=== PATIENT | female | born 1955 | race Caucasian/White ===

== ENCOUNTER 2017-02-08 06:35 | Day surgery (SDC) | payer OTHER ==
[2017-02-08 07:02] VITALS: BMI 24.7
[2017-02-08] MEDS ORDERED: Propofol 10 mg/ml Inj (20 ML) ONE (08:20)
[2017-02-08] MEDS ORDERED: Lidocaine Hydrochloride 5 ML INJ ONE (08:20)
[2017-02-08] MEDS ORDERED: Atropine 0.4 mg/ml Inj (1 mL) ONE (08:37)
[2017-02-08 12:25] VITALS: TEMP 97.9
[2017-02-08 12:37] VITALS: RESP 18
[2017-02-08 12:46] VITALS: BP 105/60; PULSE 68; O2SAT 99
== END 2017-02-08 10:15 | disposition home or self-care (01) ==
LOC: C.ENDO 06:35
PROVIDERS: ATTEND Internal Medicine
DX: K21.9 Gastro-esophageal reflux disease without esophagitis (principal); K64.8 Other hemorrhoids; K57.90 Diverticulosis of intestine, part unspecified, without perforation or abscess without bleeding; K29.70 Gastritis, unspecified, without bleeding; D12.2 Benign neoplasm of ascending colon
CPT/HCPCS: 43239; 45388; 88305; J0461; J2001; J2704

== ENCOUNTER 2018-03-12 11:42 | Emergency (ER) | payer OTHER ==
[2018-03-12 11:43] VITALS: BMI 24.7
[2018-03-12] MEDS ORDERED: Lactated Ringer's 1,000 ML IV STA (13:32)
[2018-03-12] MEDS ORDERED: Lactated Ringer's 1,000 ML ONE (13:50)
[2018-03-12 13:52] LABS: BASO % 0.7 % (0.0-2.0); EOS # 0.3 K/uL (0.0-0.7); EOS % 4.4 % (0.0-4.0); HEMOGLOBIN 13.7 g/dL (11.0-16.0); LYMPH # 2.3 K/uL (1.0-4.3); LYMPH % 38.5 % (20.0-40.0); MEAN CELL VOLUME 87.4 fL (81.0-99.0); MEAN CORPUSCULAR HEMOGLOBIN 29.4 pg (27.0-31.0); MEAN CORPUSCULAR HGB CONC 33.6 g/dL (33.0-37.0); MEAN PLATELET VOLUME 8.1 fL (7.2-11.7); MONO # 0.5 K/uL (0.0-0.8); NEUT # 2.9 K/uL (1.8-7.0); NEUT % 48.4 % (50.0-75.0); RBC 4.65 Mil/uL (3.80-5.20); RED CELL DISTRIBUTION WIDTH 13.3 % (11.5-14.5)
[2018-03-12 14:19] LABS: ALB/GLOB RATIO 1.4 (1.0-2.1); ALBUMIN 4.5 g/dL (3.5-5.0); ALT/SGPT 49 U/L (9-52); AST/SGOT 33 U/L (14-36); BLOOD UREA NITROGEN 15 mg/dL (7-17); CALCIUM 9.7 mg/dl (8.6-10.4); GFR NON-AFRICAN AMERICAN > 60
--- NOTE | 2018-03-12 14:55 | C.PDOC ---
History Of Present Illness 62 y/o female presents to the ER complaining of gradual onset of headache over the past 2 weeks. Patient states that pain is localized to the left confucianism and behind left eye. Patient reports that he took Excedrin for the pain. She is also complaining of eye irritation which has been present for the past 1 week. 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 However, the eye irritation continued last night. She feels mildly nauseous and has mild sinus congestion. Otherwise, patient denies having eye discharge, fever , chills, and vomiting. Time Seen by Provider: 03/12/18 13:25 Chief Complaint (Nursing): Dizziness/Lightheaded History Per: Patient History/Exam Limitations: no limitations Onset/Duration Of Symptoms: Days Current Symptoms Are (Timing): Still Present Severity: Moderate Past Medical History Reviewed: Historical Data, Nursing Documentation, Vital Signs Vital Signs: Last Vital Signs Temp 98.3 F 03/12/18 12:29 Pulse 74 03/12/18 12:29 Resp 18 03/12/18 12:29 BP 115/78 03/12/18 12:29 Pulse Ox 99 03/12/18 14:59 - Medical History PMH: Arthritis, Hypothyroidism Denies: Colonic Polyps, Fractures, Chronic Kidney Disease, Sleep Apnea, TIA Surgical History: Denies: Endoscopy Other Surgeries: Hx of surgeries - [facility] Procedures LAPAROSCOP REMOVE OVARIES/TUBES (05/20/14) LAPAROSCOPIC ROBOTIC ASSISTED PROCEDURE (05/20/14) LAPAROSCOPIC TOTAL ABDOMINAL HYSTERECTOMY (05/20/14) Family History: States: No Known Family Hx - Social History Hx Alcohol Use: No Hx Substance Use: No Review Of Systems Constitutional: Negative for: Fever, Chills Eyes: Positive for: Redness (left eye), Other (eye irritation). Negative for: Vision Change Cardiovascular: Negative for: Chest Pain, Palpitations Gastrointestinal: Positive for: Nausea. Negative for: Vomiting Neurological: Positive for: Headache. Negative for: Weakness, Change in Speech , Confusion, Dizziness Physical Exam - Physical Exam Appears: Non-toxic Skin: Normal Color, Warm, Dry Head: Atraumatic, Normacephalic Eye(s): bilateral: PERRL, EOMI, right: Normal Inspection, left: Other ( injection in eye) Nose: Normal Oral Mucosa: Moist Neck: Supple Chest: Symmetrical Cardiovascular: Rhythm Regular Respiratory: Normal Breath Sounds, No Rales, No Rhonchi, No Wheezing Neurological/Psych: Oriented x3, Normal Speech ED Course And Treatment - Laboratory Results Result Diagrams: 03/12/18 13:47 03/12/18 13:47 Lab Interpretation: Normal O2 Sat by Pulse Oximetry: 99 (RA) Pulse Ox Interpretation: Normal - CT Scan/US Head Other Rad Studies (CT/US): Read By Radiologist, Radiology Report Reviewed CT/US Interpretation: Accession No. : [id number]. Patient Name / ID : JAN MORELAND / [id number]. Exam Date : 03/12/2018 14:22:55 ( Approved ). Study Comment : Sex / Age : F / 62Y. Creator : Kellen Ho. Dictator : Bonnie Ryan MD. Sdet : Varnish Remover : Bonnie Ryan MD. Approver2 : Report Date : 03/12/2018 14:46:22. My Comment : . Date of service: 03/12/2018. PROCEDURE: CT HEAD WITHOUT CONTRAST. HISTORY: Headache. COMPARISON: None available. TECHNIQUE: Axial computed tomography images were obtained through the head/brain without intravenous contrast. Radiation dose: Total exam DLP = 1148.39 mGy-cm. This CT exam was performed using one or more of the following dose reduction techniques: Automated exposure control, adjustment of the mA and/or kV according to patient size, and/ or use of iterative reconstruction technique. FINDINGS: Streak artifact obscures evaluation of the skullbase. HEMORRHAGE: No intracranial hemorrhage. BRAIN: No mass effect or edema. The sanders-white matter differentiation appears intact.Please note that MRI with diffusion imaging is more sensitive in the detection of acute ischemic event. VENTRICLES: No hydrocephalus. CALVARIUM: Unremarkable. PARANASAL SINUSES: Unremarkable as visualized. No significant inflammatory changes. MASTOID AIR CELLS: Unremarkable as visualized. No inflammatory changes. OTHER FINDINGS: None. IMPRESSION: No acute intracranial pathology identified. Findings as above. Progress Note: Patient treated with IV Toradol Reevaluation Time: 15:11 Reassessment Condition: Improved Medical Decision Making Medical Decision Making: Plan: --Labs --CT- Head --Toradol IV --Zofran IV Disposition Counseled Patient/Family Regarding: Studies Performed, Diagnosis, Need For Followup - Disposition Referrals: [facility] [Outside] Disposition: HOME/ ROUTINE Disposition Time: 15:13 Condition: IMPROVED Instructions: Headache, Adult Forms: [employer] (Iraqi) - Clinical Impression Clinical Impression: Headache - Scribe Statement The provider has reviewed the documentation as recorded by the Sendyibe Bethel Alfred Provider Attestation: All medical record entries made by the Sendyibe were at my direction and personally dictated by me. I have reviewed the chart and agree that the record accurately reflects my personal performance of the history, physical exam, medical decision making, and the department course for this patient. I have also personally directed, reviewed, and agree with the discharge instructions and disposition.
[2018-03-12 15:38] VITALS: BP 96/66; PULSE 70; RESP 16; TEMP 97.5; O2SAT 100
== END 2018-03-12 15:38 | disposition home or self-care (01) ==
LOC: C.ER 11:42
DX: R51 Headache (principal)
CPT/HCPCS: 70450; 80053; 85025; 96361; 96374; 96375; 99285; J1885; J2405; J7120

== ENCOUNTER 2018-10-03 14:23 | Emergency (ER) | payer OTHER ==
[2018-10-03 14:24] VITALS: BMI 24.7
[2018-10-03 14:42] VITALS: BP 139/86; PULSE 72; RESP 17; TEMP 97.6; O2SAT 100
[2018-10-03] MEDS ORDERED: Amoxicillin-Clav 875-125 mg Tab PO STA (15:38)
--- NOTE | 2018-10-03 15:42 | C.PDOC ---
History Of Present Illness 62 y/o female pt presents to the ER c/o cough for x6 months. Associated sx includes left ear pain, tearing in the eyes and nasal congestion for x3 days. Pt reports she went to see PMD for cough and was given claritin but doesn't note much improvement. Pt is unsure if she has seasonal allergies. Pt denies fever, chills, nausea, vomiting and SOB. Chief Complaint (Nursing): ENT Problem History Per: Patient History/Exam Limitations: no limitations Onset/Duration Of Symptoms: Days (x6 months for cough) Current Symptoms Are (Timing): Still Present Past Medical History Reviewed: Historical Data, Nursing Documentation, Vital Signs Vital Signs: Last Vital Signs Temp 97.6 F 10/03/18 14:40 Pulse 72 10/03/18 14:40 Resp 17 10/03/18 14:40 BP 139/86 10/03/18 14:40 Pulse Ox 100 10/03/18 14:40 - Medical History PMH: Arthritis, Hypothyroidism - [facility] Procedures LAPAROSCOP REMOVE OVARIES/TUBES (05/20/14) LAPAROSCOPIC ROBOTIC ASSISTED PROCEDURE (05/20/14) LAPAROSCOPIC TOTAL ABDOMINAL HYSTERECTOMY (05/20/14) Family History: States: No Known Family Hx - Social History Hx Alcohol Use: No Hx Substance Use: No - Immunization History Hx Tetanus Toxoid Vaccination: No Hx Influenza Vaccination: No Hx Pneumococcal Vaccination: No Review Of Systems Constitutional: Positive for: Other (cold and congestion ). Negative for: Fever, Chills Eyes: Positive for: Other (tearing ) ENT: Positive for: Ear Pain (left ) Cardiovascular: Negative for: Chest Pain Respiratory: Positive for: Cough (wet). Negative for: Shortness of Breath Gastrointestinal: Negative for: Nausea, Vomiting Musculoskeletal: Negative for: Neck Pain Skin: Negative for: Rash Neurological: Negative for: Headache, Dizziness Physical Exam - Physical Exam Appears: Well, Non-toxic, No Acute Distress Skin: Warm, Dry, No Rash Head: Atraumatic, Normacephalic Eye(s): bilateral: Normal Inspection, PERRL Ear(s): Left: TM Erythema, Other (buldging), Right: Normal Nose: No Discharge, Other (turbinate hypertrophy) Oral Mucosa: Moist Tongue: Normal Appearing Throat: Normal, No Erythema, No Exudate Neck: Normal ROM, Supple Chest: Symmetrical Cardiovascular: Rhythm Regular Respiratory: Normal Breath Sounds, No Accessory Muscle Use, No Wheezing Gastrointestinal/Abdominal: Soft, No Tenderness Neurological/Psych: Oriented x3, Normal Speech, Normal Motor, Normal Sensation ED Course And Treatment O2 Sat by Pulse Oximetry: 100 (RA) Pulse Ox Interpretation: Normal - Other Rad chest X-Ray: Viewed By Me, Read By Radiologist Interpretation: Accession No. : [id number]. Patient Name / ID : JAN Ramirez / [id number]. Exam Date : 10/03/2018 15:40:06 ( Approved ). Study Comment : Sex / Age : F / 62Y. Creator : Gloria Pineda MD. Dictator : Gloria Pineda MD. Hopper Filler : Medical Affairs Director : Gloria Pineda MD. Approver2 : Report Date : 10/03/2018 15:53:36. My Comment : . Date of service: 10/03/2018. HISTORY: Cough. COMPARISON: No prior. TECHNIQUE: Chest PA and lateral. FINDINGS: LINES AND TUBES: None. LUNG AND PLEURA: The lungs are well inflated and clear. No pleural effusion or pneumothorax. HEART AND MEDIASTINUM: The heart is not enlarged. No aortic atherosclerotic calcifications present. The hilar and mediastinal contours are within normal limits. SKELETAL STRUCTURES: The bony structures are within normal limits for the patient's age. VISUALIZED UPPER ABDOMEN: Normal. OTHER FINDINGS: None. IMPRESSION: No active pulmonary disease. Medical Decision Making Medical Decision Making: DX: Otitis media and Upper respiratory infections Plans: -- CXR -no active pulmonary disease -- amoxicillin and Tessalon Perles given now and to continue upon discharge Recommended rest and hydration Follow up with PMD in 1-2 days Patient verbalizes understanding and is in agreement with plan. Patient is stable for discharge. Disposition Counseled Patient/Family Regarding: Studies Performed, Diagnosis, Need For Followup, Rx Given - Disposition Referrals: Alexandra Salguero [Staff Provider] - Disposition: HOME/ ROUTINE Disposition Time: 16:17 Condition: STABLE Additional Instructions: Please review handout on Otitis media and Upper respiratory infections Take meds as instructed Rest and hydration Follow up with PMD in 1-2 days Return to the ED if symptoms worsen Prescriptions: Amoxicillin/Clavulanate [Augmentin 875 MG-125 MG] 1 tab PO BID #19 tab Benzonatate [Tessalon Perles] 100 mg PO TID #30 sgl Instructions: Ear Infections (Otitis Media) (DC), Upper Respiratory Infection (ED) Forms: [employer] (Welsh) - Clinical Impression Clinical Impression: Otitis media, right, Cough - PA / BRAND ADVISOR / Resident Statement MD/ has reviewed & agrees with the documentation as recorded. - Scribe Statement The provider has reviewed the documentation as recorded by the Yuri Kulkarni Do All medical record entries made by the Scribe were at my direction and personally dictated by me. I have reviewed the chart and agree that the record accurately reflects my personal performance of the history, physical exam, medical decision making, and the department course for this patient. I have also personally directed, reviewed, and agree with the discharge instructions and disposition.
--- NOTE | 2018-10-03 15:51 | C.PDOC ---
Chief Complaint (Nursing): ENT Problem Past Medical History Vital Signs: Last Vital Signs Temp 97.6 F 10/03/18 14:40 Pulse 72 10/03/18 14:40 Resp 17 10/03/18 14:40 BP 139/86 10/03/18 14:40 Pulse Ox 100 10/03/18 14:40 - Medical History PMH: Arthritis, Hypothyroidism Denies: Colonic Polyps, Fractures, Chronic Kidney Disease, Sleep Apnea, TIA Surgical History: Denies: Endoscopy - [facility] Procedures LAPAROSCOP REMOVE OVARIES/TUBES (05/20/14) LAPAROSCOPIC ROBOTIC ASSISTED PROCEDURE (05/20/14) LAPAROSCOPIC TOTAL ABDOMINAL HYSTERECTOMY (05/20/14) - Social History Hx Alcohol Use: No Hx Substance Use: No - Immunization History Hx Tetanus Toxoid Vaccination: No Hx Influenza Vaccination: No Hx Pneumococcal Vaccination: No ED Course And Treatment O2 Sat by Pulse Oximetry: 100 Disposition Counseled Patient/Family Regarding: Studies Performed, Diagnosis, Need For Followup, Rx Given - Disposition Referrals: Alexandra Salguero [Staff Provider] - Disposition: HOME/ ROUTINE Disposition Time: 16:02 Condition: STABLE Additional Instructions: Please review handout on Otitis media and Upper respiratory infections Take meds as instructed Rest and hydration Follow up with PMD in 1-2 days Return to the ED if symptoms worsen Prescriptions: Amoxicillin/Clavulanate [Augmentin 875 MG-125 MG] 1 tab PO BID #19 tab Benzonatate [Tessalon Perles] 100 mg PO TID #30 sgl Instructions: Ear Infections (Otitis Media) (DC), Upper Respiratory Infection (ED) Forms: [employer] (Slovak) - Clinical Impression Clinical Impression: Otitis media, right, Cough
[2018-10-03] MEDS ORDERED: Amoxicillin-Clav 875-125 mg Tab PO ONE (15:55)
--- NOTE | 2018-10-03 15:57 | RAD ---
Date of service: 10/03/2018 HISTORY: Cough COMPARISON: No prior. TECHNIQUE: Chest PA and lateral FINDINGS: LINES AND TUBES: None. LUNG AND PLEURA: The lungs are well inflated and clear. No pleural effusion or pneumothorax. HEART AND MEDIASTINUM: The heart is not enlarged. No aortic atherosclerotic calcifications present. The hilar and mediastinal contours are within normal limits. SKELETAL STRUCTURES: The bony structures are within normal limits for the patient's age. VISUALIZED UPPER ABDOMEN: Normal. OTHER FINDINGS: None. IMPRESSION: No active pulmonary disease.
== END 2018-10-03 16:17 | disposition home or self-care (01) ==
LOC: C.ER 14:23
DX: H66.91 Otitis media, unspecified, right ear (principal); R05 Cough

== ENCOUNTER 2018-10-07 17:06 | Emergency (ER) | payer OTHER ==
[2018-10-07 17:07] VITALS: BMI 24.7
[2018-10-07] MEDS ORDERED: Sodium Chloride 0.9% 1,000 ML IV ONE (20:00)
[2018-10-07] MEDS ORDERED: Alum-Mag Hydrox-Simethicone Susp (30 mL) PO ONE (20:00)
[2018-10-07] MEDS ORDERED: Sodium Chloride 0.9% 1,000 ML ONE (20:28)
[2018-10-07] MEDS ORDERED: Alum-Mag Hydrox-Simethicone Susp (30 mL) ONE (20:28)
--- NOTE | 2018-10-07 20:48 | C.PDOC ---
History Of Present Illness 62 year old female presents to the ED c/o epigastric abdominal pain and burning sensation in her chest radiating up to her throat since yesterday. Patient reports symptoms started after taking Augmentin that she is taking for an ear and throat infection. Patient also reports feeling stomach bloating and some nausea. Patient denies fever, chills, CP, SOB, palpitations, vomit, diarrhea, rash, weakness, numbness. Time Seen by Provider: 10/07/18 19:44 Chief Complaint (Nursing): Abdominal Pain History Per: Patient History/Exam Limitations: no limitations Onset/Duration Of Symptoms: Days (1) Current Symptoms Are (Timing): Still Present Location Of Pain/Discomfort: Epigastric Quality Of Discomfort: Burning Associated Symptoms: Nausea. denies: Vomiting, Diarrhea, Constipation, Urinary Symptoms Exacerbating Factors: Other Recent travel outside of the [place]: No Additional History Per: Patient Abnormal Vaginal Bleeding: No Past Medical History Reviewed: Historical Data, Nursing Documentation, Vital Signs Vital Signs: Last Vital Signs Temp 97.6 F 10/07/18 20:42 Pulse 86 10/07/18 20:42 Resp 18 10/07/18 20:42 BP 119/79 10/07/18 20:42 Pulse Ox 98 10/07/18 20:42 - Medical History PMH: Arthritis, Hypothyroidism Denies: Colonic Polyps, Fractures, Chronic Kidney Disease, Sleep Apnea, TIA Surgical History: No Surg Hx - [facility] Procedures LAPAROSCOP REMOVE OVARIES/TUBES (05/20/14) LAPAROSCOPIC ROBOTIC ASSISTED PROCEDURE (05/20/14) LAPAROSCOPIC TOTAL ABDOMINAL HYSTERECTOMY (05/20/14) Family History: States: Unknown Family Hx - Social History Hx Alcohol Use: No Hx Substance Use: No - Immunization History Hx Tetanus Toxoid Vaccination: No Hx Influenza Vaccination: No Hx Pneumococcal Vaccination: No Review Of Systems Constitutional: Negative for: Fever, Chills Cardiovascular: Negative for: Chest Pain, Palpitations Respiratory: Negative for: Shortness of Breath Gastrointestinal: Positive for: Nausea, Abdominal Pain. Negative for: Vomiting, Diarrhea Skin: Negative for: Rash Neurological: Negative for: Weakness, Numbness, Headache, Dizziness Physical Exam - Physical Exam Appears: Non-toxic, No Acute Distress Skin: Normal Color, Warm, Dry Head: Atraumatic, Normacephalic Eye(s): bilateral: Normal Inspection Oral Mucosa: Moist Neck: Normal ROM, Supple Chest: Symmetrical Cardiovascular: Rhythm Regular Respiratory: Normal Breath Sounds, No Rales, No Rhonchi, No Wheezing Gastrointestinal/Abdominal: Soft, Tenderness (minimal epigastric), No Guarding, No Rebound Extremity: Normal ROM, No Tenderness, No Swelling Neurological/Psych: Oriented x3, Normal Speech, Normal Cognition Gait: Steady ED Course And Treatment - Laboratory Results Result Diagrams: 10/07/18 22:04 10/07/18 22:04 O2 Sat by Pulse Oximetry: 98 (ON RA) Pulse Ox Interpretation: Normal - CT Scan/US CT abd/pelvis Other Rad Studies (CT/US): Read By Radiologist, Radiology Report Reviewed CT/US Interpretation: EXAM: CT Abdomen and Pelvis with IV contrast. CLINICAL HISTORY: Abd pain. TECHNIQUE: Axial computed tomography images of the abdomen and pelvis with intravenous contrast. 0.00 mGy-cm. CONTRAST: With; 100MLS VISI 320. COMPARISON: None provided. FINDINGS: LUNG BASES: The lung bases appear clear. No pleural effusions are seen. LIVER: Unremarkable. GALLBLADDER AND BILE DUCTS: The gallbladder appears within normal limits. No radioopaque gallstones are seen. No biliary ductal dilatation is evident. PANCREAS: Unremarkable. SPLEEN: Unremarkable. ADRENAL GLANDS: Unremarkable. KIDNEYS, URETERS, AND BLADDER: The kidneys appear within normal limits. There is no h ydronephrosis or hydroureter. No urinary calculi are seen. STOMACH AND BOWEL: The colon demonstrates constipation. No bowel obstruction or inflammation identified. Portions of the rectum are decompressed which limits evaluation. APPENDIX: No evidence of acute appendicitis on CT examination. PERITONEUM: No free fluid. No free air. LYMPH NODES: No lymphadenopathy is evident. REPRODUCTIVE: Unremarkable as visualized. VASCULATURE: No evidence of abdominal aortic aneurysm. BONES: Mild multilevel degenerative spine changes. IMPRESSION: 1. The colon demonstrates constipation. 2. Portions of the rectum are decompressed which limits evaluation. 3. Additional and incidental findings as described above. . Electronically signed on Oct 08, 2018 12:51:16 AM EDT by: Dakota Smith M.D., Certified by [facility], Diagnostic Radiology. Medical Decision Making Medical Decision Making: Plan: * EKG * Labs * Lidocaine 15 ml PO * Maalox 30 ml PO * IV fluids * Zofran 4 mg IVP Labs and CT done and results reviewed and discussed with patient. Patient appears comfortable and in no distress. Advised antacids for GERD and stool softeners for constipation as found on CT scan. Patient stable for discharge home. Advised outpatient followup with PMD. Return to the ED for any new or worsening symptoms. Disposition - Disposition Disposition: HOME/ ROUTINE Disposition Time: 00:45 Condition: STABLE Additional Instructions: MERLY MONTOYA, thank you for letting us take care of you today. Your provider was Liliana Hernandez MD and you were treated for STOMACH INFLAMMATION. The emergency medical care you received today was directed at your acute symptoms. If you were prescribed any medication, please fill it and take as directed. It may take several days for your symptoms to resolve. Return to the Emergency Department if your symptoms worsen, do not improve, or if you have any other problems. Please contact your doctor or call one of the physicians/clinics you have been referred to that are listed on the Patient Visit Information form that is included in your discharge packet. Bring any paperwork you were given at discharge with you along with any medications you are taking to your follow up visit. Our treatment cannot replace ongoing medical care by a primary care provider outside of the emergency department. Thank you for allowing the [facility] team to be part of your care today. If you had an X-Ray or CT scan: A Radiologist will review the ED reading if any change in treatment is needed we will contact you. If you had a blood, urine, or wound culture: It will take several days for the results, if any change in treatment is needed we will contact you. If you had an STI test: It will take 48 hours for the results. Please call after 1 week if you have not heard back. Instructions: Constipation, Adult (DC), Acid Reflux (Gastroesophageal Reflux Disease), Adult (DC) Forms: [employer] (Icelandic) - Clinical Impression Clinical Impression: GERD (gastroesophageal reflux disease), Constipation - Scribe Statement The provider has reviewed the documentation as recorded by the Scribe Jeffy Cesar All medical record entries made by the Scribe were at my direction and personally dictated by me. I have reviewed the chart and agree that the record accurately reflects my personal performance of the history, physical exam, medical decision making, and the department course for this patient. I have also personally directed, reviewed, and agree with the discharge instructions and disposition.
[2018-10-07 22:19] LABS: BASO % 0.3 % (0.0-2.0); EOS # 0.3 K/uL (0.0-0.7); HEMOGLOBIN 14.1 g/dL (11.0-16.0); LYMPH # 1.2 K/uL (1.0-4.3); LYMPH % 17.8 % (20.0-40.0); MEAN CORPUSCULAR HEMOGLOBIN 29.5 pg (27.0-31.0); MEAN CORPUSCULAR HGB CONC 32.8 g/dL (33.0-37.0); MEAN PLATELET VOLUME 8.7 fL (7.2-11.7); MONO # 0.7 K/uL (0.0-0.8); MONO % 10.3 % (0.0-10.0); NEUT # 4.3 K/uL (1.8-7.0); NEUT % 66.6 % (50.0-75.0); RBC 4.78 Mil/uL (3.80-5.20); RED CELL DISTRIBUTION WIDTH 13.4 % (11.5-14.5); WHITE BLOOD COUNT 6.5 K/uL (4.8-10.8)
[2018-10-07 22:38] LABS: ALB/GLOB RATIO 1.4 (1.0-2.1); ALBUMIN 3.7 g/dL (3.5-5.0); ALT/SGPT 37 U/L (9-52); AST/SGOT 32 U/L (14-36); BLOOD UREA NITROGEN 18 mg/dL (7-17); CALCIUM 8.8 mg/dl (8.6-10.4); GFR NON-AFRICAN AMERICAN > 60; LIPASE 60 U/L (23-300)
[2018-10-07] MEDS ORDERED: Iodixanol 320 MG/ML 100 ML BOTTLE IV ONE (23:28)
[2018-10-08 00:57] VITALS: BP 97/60; PULSE 70; RESP 16; TEMP 97.8
[2018-10-08 01:16] VITALS: O2SAT 98
--- NOTE | 2018-10-08 12:04 | CT ---
Date of service: 10/07/2018 PROCEDURE: CT Abdomen and Pelvis with contrast HISTORY: abd pain COMPARISON: None available. TECHNIQUE: Contrast dose: 100 mL Visipaque 320 IV Radiation dose: Total exam DLP = 860.58 mGy-cm. This CT exam was performed using one or more of the following dose reduction techniques: Automated exposure control, adjustment of the mA and/or kV according to patient size, and/or use of iterative reconstruction technique. FINDINGS: LOWER THORAX: Mild bibasilar atelectasis. No visible pleural effusion or pneumothorax. LIVER: Unremarkable. GALLBLADDER AND BILE DUCTS: Unremarkable. PANCREAS: Unremarkable. SPLEEN: 12 mm probable splenule. Otherwise unremarkable. ADRENALS: Unremarkable. KIDNEYS AND URETERS: The kidneys enhance symmetrically. No hydronephrosis or obstructing calculus identified. VASCULATURE: No aortic aneurysm. No atherosclerotic calcification or mural plaque present. BOWEL: Stomach is nondistended. Lack of oral contrast limits evaluation for bowel pathology. Bowel loops appear within normal limits of caliber without evidence of obstruction. Thick-walled small bowel loops in the left upper quadrant, nonspecific; correlate clinically for enteritis. Moderate diffuse constipation. APPENDIX: The appendix appears within normal limits of caliber. No secondary signs of acute appendicitis. PERITONEUM: No significant free fluid. No definite free air. LYMPH NODES: Prominent sub cm mesenteric adenopathy, nonspecific. BLADDER: Unremarkable. REPRODUCTIVE: Uterus is absent, consistent with hysterectomy. BONES: Osseous demineralization. Degenerative changes. OTHER FINDINGS: None. IMPRESSION: Thick-walled small bowel loops in the left upper quadrant, nonspecific; correlate clinically for enteritis. Moderate diffuse constipation. Prominent sub cm mesenteric adenopathy, nonspecific. Correlate clinically for possibility of mesenteric adenitis. Preliminary impression was provided by [employer]. Study marked for PA review.
== END 2018-10-08 01:02 | disposition home or self-care (01) ==
LOC: C.ER 17:06
DX: K21.9 Gastro-esophageal reflux disease without esophagitis (principal); K59.00 Constipation, unspecified
CPT/HCPCS: 74177; 80053; 83690; 84484; 85025; 96361; 96374; 96375; 99285; J1885; J2405; J7030; Q9967